=== PATIENT | male | born 1985 | race Caucasian/White ===

== ENCOUNTER 2019-05-03 07:50 | Day surgery (SDC) | payer MEDICAID ==
[2019-04-29 11:12] LABS: BASOPHILS # (AUTO) 0.1 X10'3 (0-0.2); BASOPHILS % (AUTO) 0.7 % (0-1); EOSINOPHILS # (AUTO) 0.6 X10'3 (0-0.9); EOSINOPHILS % (AUTO) 3.7 % (0-6); LYMPHOCYTES # (AUTO) 3.4 X10'3 (1.1-4.8); LYMPHOCYTES % (AUTO) 20.1 % (21-51); MEAN CORPUSCULAR HEMOGLOBIN 28.5 PG (27.0-31.0); MEAN CORPUSCULAR HGB CONC 33.3 g/dL (33.0-36.5); MEAN CORPUSCULAR VOLUME 85.7 FL (78-98); MEAN PLATELET VOLUME 7.9 FL (7.4-10.4); MONOCYTES # (AUTO) 1.1 X10'3 (0-0.9); MONOCYTES % (AUTO) 6.6 % (2-12); NEUTROPHILS # (AUTO) 11.6 X10'3 (1.8-7.7); NEUTROPHILS % (AUTO) 68.9 % (42-75); PRE OP HEMATOCRIT 40.5 % (42.0-52.0); PRE OP HEMOGLOBIN 13.5 g/dL (14.0-17.9); PRE OP PLATELET COUNT 224 X10'3 (140-440); RED BLOOD COUNT 4.72 X10'6 (4.70-6.10); RED CELL DISTRIBUTION WIDTH 14.4 % (11.5-14.5)
[2019-04-29 11:26] LABS: ALBUMIN 3.7 G/DL (3.4-5.0); ALKALINE PHOSPHATASE 101 IU/L (46-116); BLOOD UREA NITROGEN 12 MG/DL (7-18); BUN/CREATININE RATIO 12.1 (5.4-32.0); CALCIUM 9.1 MG/DL (8.5-10.1); CHLORIDE 107 MMOL/L (99-107); CREATININE 0.99 MG/DL (0.60-1.10); PRE OP ALT 29 U/L (30-65); PRE OP ANION GAP 7 (8-16); PRE OP AST 13 U/L (10-37); PRE OP BILIRUB, TOTAL 0.3 MG/DL (0.0-1.0); PRE OP GLUCOSE 110 MG/DL (70-104); PRE OP SODIUM 140 MMOL/L (135-145); TOTAL CARBON DIOXIDE 25.7 MMOL/L (24-32); TOTAL PROTEIN 7.4 G/DL (6.4-8.2); eGFR 88 ML/MIN
[2019-05-03] VITALS (8 sets, daily range): BP systolic 106–130; BP diastolic 58–80
[~2019-05-03] VITALS: Ht 188 cm; Wt 140.0 kg
[~2019-05-03 07:50] MED LIST: ACET-812 PO; ceFAZolin 1GM/D5W- ADD-VANTAGE 50 ML IV ONE; cefazolin/dext.iso 2gm/100ml 100 ML IV ONE; famotidine 20mg tablet PO ONE; ringers solution, lacted 1,000 ML IV SCH
[2019-05-03] MEDS ORDERED: ringers solution, lacted 1,000 ML IV SCH (09:51)
[2019-05-03] MEDS ORDERED: LIDOcaine 0.5% (5mg/ml) 50ml vial ONE (09:54)
[2019-05-03] MEDS ORDERED: labetalol 20mg/4ml (5mg/ml) syringe IV PRN (09:55)
[2019-05-03] MEDS ORDERED: ondansetron/PF 4mg/2ml inj IV PRN (09:55)
[2019-05-03] MEDS ORDERED: hydrALAZINE 20mg/ml inj. IV PRN (09:55)
[2019-05-03] MEDS ORDERED: morphine 4 MG/ML inj SYRINge IV PRN ×2 (09:55)
[2019-05-03] MEDS ORDERED: fentaNYL/PF 50MCG/1 ML 2ML syringe IV PRN ×2 (09:55)
[2019-05-03] MEDS ORDERED: propofol 10mg/ml 20ml vial IV ONE (11:15)
[2019-05-03] MEDS ORDERED: MIDAZolam 5mg/5ml vial ONE (11:19)
[2019-05-03] MEDS ORDERED: fentaNYL/PF 50MCG/1 ML 2ML syringe ONE (11:19)
[2019-05-03] MEDS ORDERED: BUPIVAcaine/PF 2.5mg/ml (0.25%) 10ml vial ONE (11:29)
--- NOTE | 2019-05-03 12:02 | NUR ---
Received from OR via [facility], accompanied by Anesthesiologist DR FOURNIER and report given by Anesthesiologist. PT DROWSY, DENIES PAIN, RIGHT MIDDLE FINGER/HAND W/BIAS WRAP AND TAPE COVERING INCISION, CDI. Addendum: 05/03/19 at 1224 by Nicole Cortez RN Amended: Links added.
--- NOTE | 2019-05-03 13:12 | NUR ---
D/C INSTRUCTIONS GIVEN AND GONE OVER W/PT WHO VERBALIZED UNDERSTANDING, PT D/CD TO HOME VIA W/C TO PRIVATE VEHICLE W/O INCIDENT. Addendum: 05/03/19 at 1343 by Nicole Cortez RN Amended: Links added.
== END 2019-05-03 13:12 | disposition home or self-care (01) ==
LOC: PAS 07:50 → EDBD 10:30 → PAS 13:12
PROVIDERS: ATTEND Orthopaedic Surgery Hand Surgery
DX: M25.641 Stiffness of right hand, not elsewhere classified (principal); E66.9 Obesity, unspecified; Z68.39 Body mass index [BMI] 39.0-39.9, adult; F17.210 Nicotine dependence, cigarettes, uncomplicated; Z98.890 Other specified postprocedural states; Z91.018 Allergy to other foods; Z91.030 Bee allergy status; Z79.899 Other long term (current) drug therapy
CPT/HCPCS: 26440; 36415; 80053; 82948; 85025; 93005; J0690; J2001; J2250; J2704; J3010; J3490; A4215; J7120

== ENCOUNTER → 2020-05-01 | Day surgery (SDC) | payer MEDICAID ==
[2020-04-24 14:54] LABS: BASOPHILS # (AUTO) 0.1 X10'3 (0-0.2); BASOPHILS % (AUTO) 0.5 % (0-1); EOSINOPHILS # (AUTO) 0.9 X10'3 (0-0.9); EOSINOPHILS % (AUTO) 7.5 % (0-6); LYMPHOCYTES # (AUTO) 3.5 X10'3 (1.1-4.8); LYMPHOCYTES % (AUTO) 29.1 % (21-51); MEAN CORPUSCULAR HEMOGLOBIN 28.7 PG (27.0-31.0); MEAN CORPUSCULAR HGB CONC 33.5 g/dL (33.0-36.5); MEAN CORPUSCULAR VOLUME 85.5 FL (78-98); MEAN PLATELET VOLUME 7.2 FL (7.4-10.4); MONOCYTES % (AUTO) 8.5 % (2-12); NEUTROPHILS # (AUTO) 6.5 X10'3 (1.8-7.7); NEUTROPHILS % (AUTO) 54.4 % (42-75); PRE OP HEMATOCRIT 40.8 % (42.0-52.0); PRE OP HEMOGLOBIN 13.7 g/dL (14.0-17.9); PRE OP PLATELET COUNT 244 X10'3 (140-440); RED BLOOD COUNT 4.77 X10'6 (4.70-6.10); RED CELL DISTRIBUTION WIDTH 14.3 % (11.5-14.5)
[2020-04-24 15:13] LABS: ALBUMIN 3.9 G/DL (3.4-5.0); ALKALINE PHOSPHATASE 106 IU/L (46-116); BLOOD UREA NITROGEN 15 MG/DL (7-18); BUN/CREATININE RATIO 15.3 (5.4-32.0); CALCIUM 9.4 MG/DL (8.5-10.1); CHLORIDE 107 MMOL/L (99-107); CREATININE 0.98 MG/DL (0.60-1.10); PRE OP ALT 27 U/L (30-65); PRE OP ANION GAP 8 (8-16); PRE OP AST 13 U/L (10-37); PRE OP BILIRUB, TOTAL 0.3 MG/DL (0.0-1.0); PRE OP GLUCOSE 94 MG/DL (70-104); PRE OP POTASSIUM 4.3 MMOL/L (3.4-5.1); PRE OP SODIUM 142 MMOL/L (135-145); TOTAL CARBON DIOXIDE 26.6 MMOL/L (24-32); TOTAL PROTEIN 7.9 G/DL (6.4-8.2); eGFR 88 ML/MIN
[~2020-05-01] VITALS: Ht 188 cm; Wt 152.0 kg
[~2020-05-01] MED LIST changes: +ACET-2971 PO; -ACET-812 PO; +AMIT-189 PO; +BUPIVAcaine/PF 2.5mg/ml (0.25%) 10ml vial ONE; +DULO-31 PO; +DULO60CA45 PO; +LIDOcaine 0.5% (5mg/ml) 50ml vial ONE; +MELO-102 PO; +MIDAZolam 5mg/5ml vial ONE; +PREG100C PO; +acetaminophen 1,000mg/100ml IV 100 ML IV ONE; -ceFAZolin 1GM/D5W- ADD-VANTAGE 50 ML IV ONE; +ceFAZolin inj. 3,000 MG in normal saline 100ml IV soln 100 ML IV ONE; -cefazolin/dext.iso 2gm/100ml 100 ML IV ONE; +fentaNYL/PF 50MCG/1 ML 2ML syringe ONE; +flumazenil 0.1 mg/ml inj. IV ONE; +ketamine 50mg/5ml syringe ONE; +meperidine/PF 25mg/ml syringe IV PRN; +morphine 2 MG/ML inj. syringe IV PRN; +morphine 4 MG/ML inj SYRINge IV PRN; +ondansetron/PF 4mg/2ml inj IV PRN; +proCHLORperazine 10 MG/2 ml inj IV PRN; +propofol inj 20 ML IV ONE
[2020-05-01 05:55] VITALS: BP 129/66
[2020-05-01 09:03] VITALS: BP 131/68
--- NOTE | 2020-05-01 09:03 | NUR ---
Received from OR via [facility] , accompanied by Anesthesiologist AMBROSE and report given by Anesthesiolgist. PATIENT WITH BIAS DRESSING TO RIGHT HAND ALL CDI. 20G PIV IN LEFT WRIST RUNNING LR AT 100. VSS. DENIES PAIN. + CAP REFILL TO FINGERS. Addendum: 05/01/20 at 0912 by Driss Tenorio RN, RN Amended: Links added.
[2020-05-01 09:13] VITALS: BP 121/51
[2020-05-01 09:23] VITALS: BP 120/70
[2020-05-01 09:33] VITALS: BP 123/75
[2020-05-01 09:43] VITALS: BP 122/79
--- NOTE | 2020-05-01 09:53 | NUR ---
PATIENT AND FAMILY AND THEY HAVE VERBALIZED UNDERSTANDING, OPPORTUNITY TO ASK QUESTIONS GIVEN AND PATIENT COMFORTABLE WITH DC. IV TAKEN OUT WITHOUT COMPLICATION. PATIENT HAS MET ALL DC CRITERIA FOR DC HOME. I HAVE REVIEWED D/C INSTRUCTIONS WITH OUT VIA WHEELCHAIR WHERE PATIENT WAS TAKEN HOME WITH ALL BELONGINGS. FAMILY GAVE PATIENT TRANSPORT HOME. DISCUSSED WITH ABOUT USE OF CPAP X 24 HOURS. PATIENT COMPLIES WELL TO USE CPAP X24 HRS.AMBULATED, DENIES PAIN. ICE DONNED. Addendum: 05/01/20 at 0958 by Driss Tenorio RN, RN Amended: Links added.
== END | disposition home or self-care (01) ==
LOC: PAS 05:39
PROVIDERS: ATTEND Orthopaedic Surgery Hand Surgery
DX: M72.0 Palmar fascial fibromatosis [Dupuytren] (principal); Z20.828 Contact with and (suspected) exposure to other viral communicable diseases; G47.30 Sleep apnea, unspecified; M19.90 Unspecified osteoarthritis, unspecified site; K21.9 Gastro-esophageal reflux disease without esophagitis; G89.4 Chronic pain syndrome; E66.01 Morbid (severe) obesity due to excess calories; Z68.41 Body mass index [BMI] 40.0-44.9, adult; F17.210 Nicotine dependence, cigarettes, uncomplicated; Z98.890 Other specified postprocedural states; Z91.030 Bee allergy status; Z91.010 Allergy to peanuts; Z72.89 Other problems related to lifestyle; Z79.899 Other long term (current) drug therapy
CPT/HCPCS: 26121; 36415; 80053; 82948; 85025; 87635; 93005; A6222; J0131; J0690; J2001; J2250; J2704; J3010; J3490; A4215; A6449; J7120